=== PATIENT | female | born 1935 | race Caucasian/White ===

== ENCOUNTER 2017-06-01 10:35 | Outpatient (CLI) | payer MEDICARE, OTHER ==
--- NOTE | 2017-06-01 11:29 | RAD ---
PA AND LATERAL CHEST RADIOGRAPH: Date: 06-01-17 History: Bilateral thoracic back pain for the past few months. 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 Cardiac silhouette remains enlarged. Pulmonary vasculature is at the upper limits of normal but stable. There are interstitial and patchy parenchyma l changes at the right lung base and in the left midlung zone which could be related to chronic lung changes as there were slight patchy interstitial densities in these locations on the prior exam. Stevens jazmin, within the area of parenchymal change in the right lung base there is also a round appearing eusebio ency, and cavitary lesion right lung base cannot be entirely excluded. Vascular calcifications are se en in the thoracic aorta. IMPRESSION: 1. Parenchymal changes in the left midlung zone and at the right lung base, with slightly greater inc reased parenchymal changes now present at the right lung base and associated lucency in this region w hich may be related to a cavitary lesion. A CT thorax is recommended for further evaluation. Findings could be related to infectious process and possibly atypical infectious process. 2. Cardiomegaly. Code T POS: CET
--- NOTE | 2017-06-01 11:34 | RAD ---
THREE VIEWS THORACIC SPINE: Date: 06-01-17 History: Bilateral thoracic back pain for the past few months. FINDINGS: Degenerative changes are seen within the visualized cervical spine. There is suggestion of mild anter olisthesis of C7 on T1 and to a lesser extent T1 on T2. Mild degenerative changes are also seen withi n the upper thoracic spine and at the thoracolumbar junction. Vertebral body heights do appear to be within normal limits. Prominent vascular calcification is seen in the thoracic aorta. Parenchymal jared nges with area of lucency are seen overlying the lung bases which was noted to be within the region o f the right lung base on recent chest radiograph and may be related to cavitary lesion. Post-surgical change related to CABG are noted. There are metallic wires overlying the lower thorax. IMPRESSION: 1. Question of cavitary lesion overlying the right lung base. CT thorax is recommended for further ev aluation. 2. Degenerative changes in the cervical as well as upper thoracic spine and at the thoracolumbar junc tion. There is slight anterolisthesis of C7 on T1 and T1 on T2. 3. Vascular calcifications. 4. Cardiomegaly. Code T POS: CET
== END 2017-06-01 10:36 | disposition home or self-care (01) ==
LOC: SCSRAD 10:35
PROVIDERS: ATTEND Family Medicine
DX: M54.6 Pain in thoracic spine (principal); M47.892 Other spondylosis, cervical region; I51.7 Cardiomegaly; I77.9 Disorder of arteries and arterioles, unspecified
CPT/HCPCS: 71046; 72070

== ENCOUNTER 2017-06-10 09:18 | Outpatient (CLI) | payer MEDICARE, OTHER ==
--- NOTE | 2017-06-10 10:56 | CT ---
CT CHEST WITHOUT CONTRAST: CLINICAL HISTORY: Abnormal finding on chest x-ray of 06/01/17. FINDINGS: Absence of IV contrast reduces the sensitivity of the exam, particularly for evaluation of mediastina l, hilar, and vascular structures. There are vascular calcifications without evidence of aneurysmal dilatation of the thoracic aorta. N o pleural or pericardial effusions are seen. No pneumothoraces are identified. There are focal area s of bronchiectasis in the right middle lobe and the left upper lobe with adjacent soft tissue densit y. Patchy reticulonodular infiltrates are seen in the right upper and lower lobes. There is a patch y area of ground-glass infiltrate in the right lower lobe anteriorly. There are degenerative changes in the spine. Upper abdominal tomograms demonstrate a calcified gallstone, calcified granulomas in the spleen, and right renal cyst. IMPRESSION: 1. Acute on chronic parenchymal lung changes. 2. Cholelithiasis. POS: AD
== END 2017-06-10 09:19 | disposition home or self-care (01) ==
LOC: SCSCT 09:18
PROVIDERS: ATTEND Family Medicine
DX: R93.8 Abnormal findings on diagnostic imaging of other specified body structures (principal); K80.20 Calculus of gallbladder without cholecystitis without obstruction
CPT/HCPCS: 71250

== ENCOUNTER 2017-06-27 10:33 | Outpatient (CLI) | payer MEDICARE, OTHER ==
--- NOTE | 2017-06-27 11:54 | RAD ---
PA AND LATERAL CHEST RADIOGRAPH: Date: 06-27-17 History: Abnormal finding on chest radiograph. 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 The cardiac silhouette does appear enlarged. Ag ain noted are patchy parenchymal changes in the region of the lingula with increased interstitial and patchy parenchymal densities at the right lung base which are overall stable compared to the prior e xam. No new area of consolidation or pleural fluid is seen. Vascular calcification is seen in the tho racic aorta. No other interval change. IMPRESSION: 1. Stable parenchymal opacity within the region of the lingual/left midlung zone as well as stable in terstitial and mild parenchymal opacities at the right lung base. This may be related to chronic infe ctious or inflammatory process. Follow up to resolution is suggested. Atypical infectious process cou ld not be excluded. POS: AD
== END 2017-06-27 10:34 | disposition home or self-care (01) ==
LOC: SCSRAD 10:33
PROVIDERS: ATTEND Family Medicine
DX: R93.8 Abnormal findings on diagnostic imaging of other specified body structures (principal); R91.8 Other nonspecific abnormal finding of lung field
CPT/HCPCS: 71046

== ENCOUNTER 2017-12-01 10:50 | Outpatient (CLI) | payer MEDICARE, OTHER ==
--- NOTE | 2017-12-01 12:16 | RAD ---
LEFT HIP 2 VIEWS: Date: 12/01/17 HISTORY: Fall. Injury. COMPARISON: None. FINDINGS: Comminuted fractures of left superior and inferior pubic rami. Acetabulum appears to be intact. IMPRESSION: Comminuted fractures left superior and inferior pubic rami. POS: OFF
--- NOTE | 2017-12-01 13:24 | RAD ---
PELVIS ONE VIEW: History: Fall. Comparison: None. FINDINGS: There is a comminuted fracture of the left superior and anterior pubic rami. The acetabula does not a ppear to be fractured. The left SI joint is unremarkable. IMPRESSION: Comminuted fracture of left superior and inferior pubic rami. POS: OFF
== END 2017-12-01 10:51 | disposition home or self-care (01) ==
LOC: SCSRAD 10:50
PROVIDERS: ATTEND Family Medicine
DX: M25.552 Pain in left hip (principal); S32.592A Other specified fracture of left pubis, initial encounter for closed fracture
CPT/HCPCS: 72170